=== PATIENT | female | born 1970 | race Caucasian/White ===

== ENCOUNTER → 2019-04-03 | Outpatient (CLI) | payer SELFPAY ==
--- NOTE | 2019-04-03 10:34 | MM ---
Reason for exam: screening (asymptomatic). Baseline mammogram. History: Patient has history of other cancer at age 44. Physical Findings: Nurse did not find any significant physical abnormalities on exam. MG 3D Screening Mammo W/Cad Bilateral CC and MLO view(s) were taken. There are scattered fibroglandular densities. Lateral asymmetric density posterior depth right breast has no clear correlate on the MLO view and partially disperses on 3D images. Two area of 5mm nodularity upper outer quadrant left breast can be reassessed in 6 month. These results were verbally communicated with the patient and result sheet given to the patient on 04/03/19. ASSESSMENT: Incomplete: need additional imaging evaluation, BI-RAD 0 RECOMMENDATION: Special view mammogram of the right breast. (3D)
--- NOTE | 2019-04-03 10:38 | MM ---
Reason for exam: additional evaluation requested from abnormal screening. History: Patient has history of other cancer at age 44. Physical Findings: Breast exam preformed at baseline screening. MG 3D Work Up W/Cad RT CC, CCRM, and ML view(s) were taken of the right breast. There are scattered fibroglandular densities. The asymmetric density lateral right breast becomes less defined on spot 3D CC. It disperses on rolled CC and true lateral view. Precautionary 6 month follow up recommended. 6 month follow up recommended for the 5mm nodualarity upper outer quadrant left breast, either intramammary nodes or small cysts favored. These results were verbally communicated with the patient and result sheet given to the patient on 04/03/19. ASSESSMENT: Probably benign, BI-RAD 3 RECOMMENDATION: Follow-up diagnostic mammogram of both breasts in 6 months.
== END | disposition home or self-care (01) ==
LOC: RADMAMWWP 08:38
PROVIDERS: ATTEND Obstetrics & Gynecology
DX: Z12.31 Encounter for screening mammogram for malignant neoplasm of breast (principal); R92.8 Other abnormal and inconclusive findings on diagnostic imaging of breast
CPT/HCPCS: 77061; 77063; 77065; 77067

== ENCOUNTER → 2020-01-19 | Outpatient (CLI) | payer BC ==
--- NOTE | 2020-01-19 12:26 | MM ---
Reason for exam: follow-up at short interval from prior study. Last mammogram was performed 10 months ago. History: Patient has history of other cancer at age 44. Physical Findings: Nurse did not find any significant physical abnormalities on exam. MG 3D Diag Mammo W/Cad KAMALA Bilateral CC and MLO view(s) were taken. Prior study comparison: April 03, 2019, right breast MG 3d work up w/cad RT. April 03, 2019, bilateral MG 3d screening mammo w/cad. There are scattered fibroglandular densities. Stable two nodular areas in the upper outer quadrant left beast for 10 months, additional 1 year follow up recommended. Lateral asymmetric density on the right does not persist. These results were verbally communicated with the patient and result sheet given to the patient on 01/19/20. ASSESSMENT: Probably benign, BI-RAD 3 RECOMMENDATION: Follow-up diagnostic mammogram of both breasts in 1 year. (right annual, left nearly 2 year follow up)
== END | disposition home or self-care (01) ==
LOC: RADMAMWWP 11:04
PROVIDERS: ATTEND Obstetrics & Gynecology
DX: R92.8 Other abnormal and inconclusive findings on diagnostic imaging of breast (principal)
CPT/HCPCS: 77062; 77066

== ENCOUNTER → 2021-03-16 | Outpatient (CLI) | payer BC ==
--- NOTE | 2021-03-16 15:09 | MM ---
Reason for exam: additional evaluation requested from prior study. Last mammogram was performed 1 year and 2 months ago. History: Patient has history of other cancer at age 44. Physical Findings: Nurse did not find any significant physical abnormalities on exam. MG 3D Diag Mammo W/Cad KAMALA Bilateral CC and MLO view(s) were taken. Prior study comparison: January 19, 2020, bilateral MG 3d diag mammo w/cad K[facility]ALA. April 03, 2019, right breast MG 3d work up w/cad RT. There are scattered fibroglandular densities. There is chronic nodularity bilaterally. No significant new findings when compared with previous films. These results were verbally communicated with the patient and result sheet given to the patient on 03/16/21. ASSESSMENT: Benign, BI-RAD 2 RECOMMENDATION: Routine screening mammogram of both breasts in 1 year.
== END | disposition home or self-care (01) ==
LOC: RADMAMWWP 13:11
PROVIDERS: ATTEND Obstetrics & Gynecology
DX: R92.8 Other abnormal and inconclusive findings on diagnostic imaging of breast (principal)
CPT/HCPCS: 77062; 77066

== ENCOUNTER → 2021-08-04 | Outpatient (CLI) | payer BC ==
--- NOTE | 2021-08-04 12:29 | CA ---
Transthoracic Echo Report Name: Stephanie Morales Age: 50 Gender: F : 1970 Exam Date: 08/04/2021 10:47 Exam Location: [facility] Ht (in): 62 Wt (lb): 180 Ordering Physician: Tre Paris DO Attending/Referring Phys: Stephanie Feliciano PAC Diagnostic Medical Sonographer Vaishnavi Sarabia RDCS Procedure CPT: Indications: R07.9 chest pain unspecified Cardiac Hx: Family Hx of heart disease Technical Quality: Fair Contrast 1: Total Dose (mL): Contrast 2: Total Dose (mL): MEASUREMENTS (Male / Female) Normal Values 2D ECHO LV Diastolic Diameter PLAX 4.4 cm 4.2 - 5.9 / 3.9 - 5.3 cm LV Systolic Diameter PLAX 2.8 cm IVS Diastolic Thickness 1.2 cm 0.6 - 1.0 / 0.6 - 0.9 cm LVPW Diastolic Thickness 1.2 cm 0.6 - 1.0 / 0.6 - 0.9 cm LV Relative Wall Thickness 0.6 RV Internal Dim ED PLAX 2.8 cm LA Systolic Diameter LX 3.1 cm 3.0 - 4.0 / 2.7 - 3.8 cm LA Volume 34.2 cm??? 18 - 58 / 22 - 52 cm??? M-MODE Aortic Root Diameter MM 2.9 cm MV E Point Septal Separation 0.7 cm AV Cusp Separation MM 2.1 cm DOPPLER AV Peak Velocity 111.1 cm/s AV Peak Gradient 4.9 mmHg MV Area PHT 2.5 cm??? Mitral E Point Velocity 82.6 cm/s Mitral A Point Velocity 85.8 cm/s Mitral E to A Ratio 1.0 MV Deceleration Time 308.6 ms MV E' Velocity 7.3 cm/s Mitral E to MV E' Ratio 11.3 TR Peak Velocity 189.4 cm/s TR Peak Gradient 14.4 mmHg Right Ventricular Systolic Press 18.6 mmHg FINDINGS Left Ventricle Left ventricular ejection fraction is estimated at 55-60 %. Left ventricular cavity size normal. Mild concentric left ventricular hypertrophy. Right Ventricle Normal right ventricular size and function. Right ventricular systolic pressure within normal limits. Right Atrium Normal right atrial size. Left Atrium Normal left atrial size. No evidence for an atrial septal defect. No evidence for an atrial septal defect Mitral Valve Structurally normal mitral valve. No mitral stenosis, regurgitation or prolapse. Aortic Valve Trileaflet aortic valve. No aortic valve stenosis or regurgitation. Tricuspid Valve Mild tricuspid regurgitation. Pulmonic Valve Pulmonic valve not well visualized. Pericardium No pericardial effusion. Aorta Normal size aortic root and proximal ascending aorta. CONCLUSIONS Normal LV size and systolic function without segmental wall motion abnormalities Previewed by: Dr. Adam Lopez MD (Electronically Signed) Final Date: 04 Aug 2021 12:28
--- NOTE | 2021-08-04 12:52 | CA ---
Exercise Stress Test Report Name: Stephanie Morales Exam Date: 08/04/2021 10:06 Exam Location: [facility] Ht (in): 62 Wt (lb): 180 BSA: 1.83 Ordering Phys: Tre Paris DO Referring Phys: JodieYeniStephanie D PAC Technologist: Roger Guerra Age: 50 Gender: F : 1970 Procedure CPT: Indications: R07.9 chest pain unspecified ICD-10 Codes: Patient History: FAMILY HISTORY Medications: HYDROCHLOROTHIAZIDE Meds past 24 hrs: Pretest Chest Pain: STRESS TEST Ethan Protocol Exercise Duration (min:sec): 09:[address] Depressions (mm): Angina Score: Dawson Score: Resting HR (bpm): 80 Peak HR (bpm): 154 Resting BP (mmHg): 148 / 98 Peak BP (mmHg): 207 / 101 MPHR: 171 Target HR: 145 % MPHR: 90 METS: 10.3 Total Dose: Peak Dose: Atropine: Double Product: 11540 BP Response: Stress Termination: Reached target heart rate Stress Symptoms: NO SYMPTOMS Stress Summary: ECG ANALYSIS Resting ECG: Stress ECG: CONCLUSIONS Baseline heart rate 75 beats a minute, Baseline blood pressure 148/98 mmHg Baseline twelve-lead EKG showed sinus rhythm and normal ST segments Patient exercised on a Ethan protocol for 9 minutes No symptoms noted No ECG is for ischemia or arrhythmia noted Good exercise capacity No ECG evidence for ischemia Dr. Adam Lopez MD (Electronically Signed) Final Date: 04 Aug 2021 12:51
== END | disposition home or self-care (01) ==
LOC: RADNMMAIN 09:33
PROVIDERS: ATTEND Family Medicine
DX: R06.02 Shortness of breath (principal); R07.9 Chest pain, unspecified; I10 Essential (primary) hypertension
CPT/HCPCS: 93017; 93306

== ENCOUNTER → 2022-03-22 | Outpatient (CLI) | payer BC ==
--- NOTE | 2022-03-23 09:44 | MM ---
Reason for Exam: Screening (asymptomatic). Last screening mammogram was performed 12 month(s) ago. Patient History: Menarche at age 13. First Full-Term at age 19. Other cancer, age 44. Last menstrual period: 03/20/2022 Risk Values: Nasrin 5 year model risk: 0.7%. NCI Lifetime model risk: 6.5%. Prior Study Comparison: 04/03/2019 Right Diagnostic Mammogram, [facility]. 01/19/2020 Bilateral Diagnostic Mammogram, [facility]. 03/16/2021 Bilateral Diagnostic Mammogram, [facility]. Tissue Density: The breast tissue is heterogeneously dense. This may lower the sensitivity of mammography. Findings: Analyzed By CAD. Stable small round circumscribed masses bilaterally posteriorly in the right breast and laterally in the left breast. There is no suspicious group of microcalcifications or new suspicious mass in either breast. Overall Assessment: Benign, BI-RAD 2 Management: Screening Mammogram of both breasts in 1 year. A clinical breast exam by your physician is recommended on an annual basis and results should be correlated with mammographic findings. Electronically signed and approved by: Antonio Feliz M.D.
== END | disposition home or self-care (01) ==
LOC: RADMAMWWP 03-20 16:35
PROVIDERS: ATTEND Obstetrics & Gynecology
DX: Z12.31 Encounter for screening mammogram for malignant neoplasm of breast (principal)
CPT/HCPCS: 77063; 77067

== ENCOUNTER → 2023-04-11 | Outpatient (CLI) | payer BC ==
--- NOTE | 2023-04-13 16:37 | MM ---
Reason for Exam: Screening (asymptomatic). Last mammogram was performed 1 year(s) and 1 month(s) ago. Patient History: Menarche at age 13. First Full-Term at age 19. Other cancer, age 44. Last menstrual period: 04/03/2023 Risk Values: Nasrin 5 year model risk: 0.7%. NCI Lifetime model risk: 6.4%. Prior Study Comparison: 01/19/2020 Bilateral Diagnostic Mammogram, [facility]. 03/16/2021 Bilateral Diagnostic Mammogram, [facility]. 03/22/2022 Bilateral MG 3D screening mammo w/cad, [facility]. Tissue Density: The breast tissue is heterogeneously dense. This may lower the sensitivity of mammography. Findings: Analyzed By CAD. The pattern is symmetrical and stable. No significant interval changes. No suspicious groups of microcalcifications, spiculated or lobular masses, architectural distortion or other secondary signs of malignancy are mammographically apparent. Overall Assessment: Benign, BI-RAD 2 Management: Screening Mammogram of both breasts in 1 year. A negative mammogram report should not preclude additional follow up of suspicious palpable abnormalities. Patient should continue monthly self breast exam. A clinical breast exam by your physician is recommended on an annual basis and results should be correlated with mammographic findings. Electronically signed and approved by: Manoj Jonas D.O. Radiologis
== END | disposition home or self-care (01) ==
LOC: RADMAMWWP 11:42
PROVIDERS: ATTEND Obstetrics & Gynecology
DX: Z12.31 Encounter for screening mammogram for malignant neoplasm of breast (principal)
CPT/HCPCS: 77063; 77067

== ENCOUNTER → 2024-10-16 | Outpatient (CLI) | payer BC ==
[2024-10-16 15:52] LABS: Basophils # (A) 0.04 10*3/uL (0.00-0.10); Basophils % (A) 0.2 %; Eosinophils # (A) 0.00 10*3/uL (0.04-0.35); Eosinophils % (A) 0.0 %; HCT 43.6 % (37.2-46.3); HGB 15.7 g/dL (12.0-15.0); Lymphocytes # (A) 1.08 10*3/uL (0.90-5.00); Lymphocytes % (A) 6.2 %; MCH 30.6 pg (27.0-32.0); MCHC 36.0 g/dL (32.0-37.0); MCV 85.0 fL (80.0-97.0); Monocytes # (A) 1.10 10*3/uL (0.20-1.00); Monocytes % (A) 6.4 %; Neutrophils # (A) 15.03 10*3/uL (1.80-7.70); Neutrophils % (A) 86.8 %; Platelet Count 277 10*3/uL (140-440); RBC 5.13 10*6/uL (4.10-5.20); RDW 12.8 % (11.5-14.5); WBC 17.32 10*3/uL (4.50-10.00)
--- NOTE | 2024-10-16 16:02 | CT ---
EXAMINATION TYPE: CT abdomen pelvis w con CT DLP: 1154 mGycm, Automated exposure control for dose reduction was used. DATE OF EXAM: 10/16/2024 3:49 PM COMPARISON: None CLINICAL INDICATION:Female, 53 years old with history of R10.30 LOWER ABDOMINAL PAIN, UNSPECIFIED; LLQ abdominal pain x few days increasing in pain. TECHNIQUE: Standard CT of the abdomen and pelvis following the administration of 100 cc of Isovue 3 00 IV contrast material and oral contrast. Coronal and sagittal reformats were performed. FINDINGS: LOWER CHEST: Left lower lobe and lingula linear atelectasis. ABDOMEN LIVER: No focal lesion. Mild enlarged measuring 20.3 cm in CC dimension. Probable Reidel lobe variant . GALLBLADDER AND BILE DUCTS: The gallbladder is surgically absent. No biliary ductal dilatation. PANCREAS: Unremarkable. SPLEEN: Unremarkable. ADRENAL GLANDS: Unremarkable. KIDNEYS AND URETERS: No evidence of hydronephrosis or renal calculus. The kidneys enhance symmetrical ly. Prominent bilateral extrarenal pelvises with right greater than left. Contrast is demonstrated wi thin both collecting systems and proximal ureters on the delayed phase. PELVIS BLADDER: Unremarkable REPRODUCTIVE: Unremarkable. ABDOMEN & PELVIS STOMACH AND BOWEL: Moderate sized hiatal hernia.Small periampullary duodenal diverticulum. Circumfere ntial wall thickening with diverticula and surrounding fat stranding involving the descending colon/s igmoid colon junction. No surrounding organized fluid collection. Enteric contrast reaches the mid tr ansverse colon. The appendix appears to be surgical absent. No evidence of bowel obstruction. PERITONEUM: No evidence of pneumoperitoneum. Trace free fluid in the pelvic cul-de-sac. Likely physio logic. VASCULATURE: No evidence of aortic aneurysm. MUSCULOSKELETAL: No acute osseous abnormalities. Degenerative disc disease L5-S1 with endplate sclero sis and disc space narrowing. LYMPH NODES: No evidence for lymphadenopathy. SOFT TISSUE/ABDOMINAL WALL: Unremarkable IMPRESSION: 1. Acute uncomplicated diverticulitis involving the descending/sigmoid colon junction. 2. Moderate-sized hiatal hernia. [facility], , 10/16/2024 4:00 PM
[2024-10-16 16:08] LABS: ALT 49 U/L (4-34); AST 55 U/L (14-36); African American GFR (CKD) >90 (>60 ml/min/1.73 sqM); Albumin 4.6 g/dL (3.5-5.0); Albumin/Globulin Ratio 1.5; Alkaline Phosphatase 154 U/L (38-126); Anion Gap 11 mmol/L; Blood Urea Nitrogen 11 mg/dL (7-17); Calcium 10.1 mg/dL (8.4-10.2); Carbon Dioxide 28 mmol/L (22-30); Chloride 94 mmol/L (98-107); Globulin 3.0 g/dL; Glucose 108 mg/dL (74-99); Lipase 45 U/L (23-300); Non-African American GFR(CKD) >90 (>60 ml/min/1.73 sqM); Potassium 3.7 mmol/L (3.5-5.1); Sodium 133 mmol/L (137-145); Total Protein 7.6 g/dL (6.3-8.2)
== END | disposition home or self-care (01) ==
LOC: RADCTMAIN 13:40
PROVIDERS: ATTEND Family Medicine
DX: K44.9 Diaphragmatic hernia without obstruction or gangrene (principal); K57.32 Diverticulitis of large intestine without perforation or abscess without bleeding
CPT/HCPCS: 80053; 83690; 85025; 74177; 36415; Q9967